=== PATIENT | female | born 1990 | race Hispanic/Latino ===

== ENCOUNTER 2018-04-21 18:43 | Outpatient (CLI) | payer OTHER ==
[2018-04-21 18:59] VITALS: BP 111/56
[2018-04-21] MEDS ORDERED: LACTATED RINGERS 500 ML IV ONE (19:20)
[2018-04-21 20:23] LABS: Bacteria,Urine 2+ /HPF (Negative); Bilirubin,Urine NEG (Negative); Blood,Urine NEG (Negative); Color,Urine Amber (Yellow); Mucus,Urine 1+ /HPF
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
--- NOTE | 2018-04-26 13:45 | History and Physical Report ---
Past History - Obstetrical History : 5 Medications and Allergies Allergies Allergy/AdvReac Type Severity Reaction Status Date / Time No Known Allergies Allergy Unverified 04/21/18 19:14 - Vital Signs Vital signs: Vital Signs Pulse BP 86 111/56 04/21/18 18:58 04/21/18 18:58 Temp Pulse Resp BP Pulse Ox 86 111/56 04/21/18 18:58 04/21/18 18:58 Results All other labs normal.
== END 2018-04-21 20:23 | disposition home or self-care (01) ==
LOC: TRG 18:43
PROVIDERS: ATTEND Obstetrics & Gynecology
DX: O47.03 False labor before 37 completed weeks of gestation, third trimester (principal); Z3A.33 33 weeks gestation of pregnancy
CPT/HCPCS: 59025; 81001

== ENCOUNTER 2018-05-28 11:51 | Inpatient (IN) | payer OTHER ==
[2018-05-28] MEDS ORDERED: BRETHINE SUB-Q PRN ×2 (12:28→13:00)
[2018-05-28] MEDS ORDERED: MINERAL OIL PO PRN ×2 (12:28→13:00)
[2018-05-28] MEDS ORDERED: SUBLIMAZE IV PRN ×2 (12:28→13:00)
[2018-05-28] MEDS ORDERED: XYLOCAINE 2% INFILTRATI ONE (12:28)
--- NOTE | 2018-05-28 12:40 | History and Physical Report ---
History of Present Illness Date of examination: 05/28/18 Chief complaint: labor History of present illness: EDC Confirmation: 06/08/2018 Past History : 5 Term Births: 1 Premature Births: 2 Living Children: 3 Para: 3 Mult. Births: 0 Prev : 0 Aborta: 1 Elect. Ab: 0 Spont. Ab: 1 Ectopics: 0 # 1 Delivery date: 10/2008 Weeks Gestation: 36 labor: yes Delivery type: Anesthesia type: epidural Infant Sex: male weight: 8lbs 12oz # 2 Delivery date: 01/2010 Weeks Gestation: 35 labor: yes Delivery type: Anesthesia type: epidurl Infant Sex: male weight: 5lbs 12oz # 3 Delivery date: 12/2016 Weeks Gestation: 39 labor: no Delivery type: Anesthesia type: epidural Sex: male weight: 7lbs 9oz Comments: on 17P for h/o delivery; Past Medical History: Reviewed history and no changes required: Bipolar Disease Schizophrenia Past Surgical History: Negative Past Surgical History Past Medical History Surgery (Non-editing clerk): Negative Past Surgical History Abnormal PAP: negative THOMPSON Exposure: negative Infertility: negative Uterine Anomaly: negative Uterine Surgery (not C/S): negative Other Gynecologic Problems: negative Infection History Partner hx. of genital herpes: yes Varicella/Chicken Pox Status: Previous Disease Genetic History Congenital Heart Defect: Mom: no Dad: no Gianni Disease: Mom: no Dad: no Thalassemia Mom: no Dad: no Neural Tube Defect Mom: no Dad: no Down's Syndrome Mom: no Dad: no Florian-Sachs Mom: no Dad: no Sickle Cell Disease/Trait Mom: no Dad: no Hemophilia Mom: no Dad: no Muscular Dystrophy Mom: no Dad: no Cystic Fibrosis Mom: no Dad: no [place] Chorea Mom: no Dad: no Mental Retardation Mom: no Dad: no Fragile X Mom: no Dad: no Other Genetic/Chromosomal Disorder Mom: no Dad: no Child w/other defect Mom: no Dad: no Enviromental Exposures Xray Exposure: no Medication, drug, or alcohol use since LMP: yes Chemical/Other Exposure: no Exposure to Cat Liter: no Hx of Parvovirus (Fifth Disease): no Occupational Exposure to Children: none Comments: psych meds Current Allergies (reviewed today): No known allergies Past History Past Medical History: other (See HPI) Past Surgical History: other (see HPI) 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 (see HPI) Family/Genetic History: other (see HPI) Social history: smoking - Obstetrical History Expected Date of Delivery: 06/08/18 Actual Gestation: 38 Week(s) 3 Day(s) : 5 Para: 3 Hx # Term Pregnancies: 1 Number of Pregnancies: 2 Number of Living Children: 3 Medications and Allergies Allergies Allergy/AdvReac Type Severity Reaction Status Date / Time No Known Allergies Allergy Unverified 04/21/18 19:14 Active Meds: Active Medications Ephedrine Sulfate (Ephedrine Sulfate) 10 mg IV Q2M PRN PRN Reason: Hypotension Fentanyl (Sublimaze) 100 mcg IV Q2H PRN PRN Reason: Labor Pain Lactated Ringer's (Lactated Ringers) 1,000 mls @ 125 mls/hr IV DIRECT GAYLE Oxytocin/Sodium Chloride (Pitocin/Ns 20 Unit/1000ml Drip) 20 units in 1,000 mls @ 125 mls/hr IV DIRECT GAYLE Lidocaine (Xylocaine 2%) 20 ml INFILTRATI ONCE ONE Stop: 05/28/18 12:29 Mineral Oil (Mineral Oil) 30 ml PO QHS PRN PRN Reason: Constipation Terbutaline Sulfate (Brethine) 0.25 mg SUB-Q ONCE PRN PRN Reason: Hyperstimulation/Hypertonicity Review of Systems All systems: negative - Vital Signs Vital signs: Vital Signs Pulse BP 74 106/62 05/28/18 12:14 05/28/18 12:14 Temp Pulse Resp BP Pulse Ox 74 106/62 05/28/18 12:14 05/28/18 12:14 - Physical Exam Breasts: Positive: normal Cardiovascular: Regular rate Lungs: Positive: Clear to auscultation, Normal air movement Abdomen: Positive: normal appearance, soft Genitourinary (Female): Positive: normal external genitalia, normal perenium Vulva: both: normal Vagina: Positive: normal moisture Uterus: Positive: normal size Extremities: Positive: normal Deep Tendon Reflex Grade: Normal +2 - Obstetrical FHR: category 1 Uterine Contraction Monitor Mode: External Cervical Dilatation: 8 (per utility worker production) Uterine Contraction Pattern: Regular Uterine Tone Measurement Phase: Contraction Uterine Contraction Intensity: Strong/Firm Results All other labs normal. Assessment and Plan 27y/o @ 38+3 weeks arrived 8cm in labor. GBS NEG. NICU aware of patient's arrival and status - Dr. Nuñez aware of pt's hx and has received copies of echo. Admission orders in EMR. Anticipate . - Patient Problems (1) Rh negative status during Current Visit: Yes Status: Acute Qualifiers: Trimester: third trimester Qualified Code(s): O26.893 - Other specified related conditions, third trimester; Z67.91 - Unspecified blood type, Rh negative Plan to address problem: rhogam work up (2) Smoker Current Visit: Yes Status: Acute (3) IUGR (intrauterine growth restriction) Current Visit: Yes Status: Acute (4) Bipolar 1 disorder Current Visit: Yes Status: Acute (5) Schizophrenia Current Visit: Yes Status: Acute (6) heart defect Current Visit: Yes Status: Acute Plan to address problem: NICU Aware (7) Active labor at term Current Visit: Yes Status: Acute (8) 38 weeks gestation of Current Visit: Yes Status: Acute
[2018-05-28 12:53] LABS: Hematocrit 38.3 % (30.3-42.9); Hemoglobin 13.1 gm/dl (10.1-14.3); Mean Corpuscular HGB Conc 34 % (30-34); Mean Corpuscular Volume 94 fl (79-97); Platelet Count 308 K/mm3 (140-440); Red Blood Count 4.08 M/mm3 (3.65-5.03); Red Cell Distribution Width 12.9 % (13.2-15.2)
[2018-05-28] MEDS ORDERED: STADOL IV PRN (13:00)
[2018-05-28] MEDS ORDERED: PITOCin/NS 20 UNIT/1000ML DRIP 20 UNITS/1,000 ML BAG IV SCH ×3 (13:00→17:24)
[2018-05-28] MEDS ORDERED: LACTATED RINGERS 1,000 ML IV SCH ×2 (13:00)
[2018-05-28] MEDS ORDERED: ZOFRAN IV PRN (13:00)
[2018-05-28] MEDS ORDERED: BRETHINE IVP PRN (13:00)
[2018-05-28] MEDS ORDERED: MARCAINE 0.25% INFILTRATI ONE (13:40)
--- NOTE | 2018-05-28 14:16 | Post Anesthesia Evaluation ---
- Post Anesthesia Evaluation Patient Participated: Yes Airway Patent: Yes Stable Respiratory Function: Yes Nausea/Vomiting: No Temp > 96.8F: Yes Pain Manageable: Yes Adequeate Hydration: Yes Anesthesia Complications: No Block Receding Appropriately: Yes (only gave half loading dose due to status and being 8cm) Patient on Ventilator: No
--- NOTE | 2018-05-28 14:17 | Anesthesia Day of Surgery ---
Anesthesia Day of Surgery - Day of Surgery Patient Examined: Yes Patient H&P Reviewed: Yes Patient is NPO: Yes Beta Blockers: No Cardiac Clearance: No Pulmonary Clearance: No Nabor's Test: N/A
--- NOTE | 2018-05-28 14:18 | Anesthesia Consultation ---
Anesthesia Consult and Med Hx - Airway Anesthetic Teeth Evaluation: Good (few in bad cond) ROM Head & Neck: Adequate Mental/Hyoid Distance: Adequate Mallampati Class: Class I Intubation Access Assessment: Good - Pulmonary Exam CTA: Yes - Cardiac Exam Cardiac Exam: RRR - Pre-Operative Health Status ASA Pre-Surgery Classification: ASA2 Proposed Anesthetic Plan: Epidural - Pulmonary Hx Smoking: Yes (cigs and THC) Hx Asthma: No - Cardiovascular System Hx Hypertension: No - Central Nervous System Hx Seizures: No Hx Psychiatric Problems: Yes (Paranoid Schizophrenic, Bipolar, PTSD, Manic Depression) - Endocrine Hx Renal Disease: No Hx Hypothyroidism: No Hx Hyperthyroidism: No - Hematic Hx Anemia: No Hx Sickle Cell Disease: No - Other Systems Hx Alcohol Use: No
--- NOTE | 2018-05-28 14:22 | Procedure Note ---
OB Delivery Note - Delivery Date of Delivery: 05/28/18 ( female) Test Tech: AMARI MONTANO Estimated blood loss: 200cc - Vaginal Delivery presentation: vertex Delivery position: OA Intrapartum events: none Delivery induction: none Delivery monitor: external FHT, external uterine Route of delivery: Delivery placenta: spontaneous Delivery cord: nuchal cord, 3 umbilical vessels Episiotomy: none Delivery laceration: none Anesthesia: epidural Delivery comments: Dr Nuñez, RN and ETHYLBENZENE OXIDIZER present for delivery. Female del over intact perineum, tight nuchal cord - somersaulted through. 3 vessel cord clamped and cut, take to warmer for assessment by NICU team. Placenta del intact and complete. Pit to IVF. no lacerations. EBL 200. wt 6#12. Apgars 6/8. Infant admitted to NICU for cardiology evaluation. Mother LDR stable. - Infant A at 1 minute: 6 at 5 minutes: 8 Gender: Female (6#12)
[2018-05-28] MEDS ORDERED: TUCKS PAD TP PRN (16:24)
[2018-05-28] MEDS ORDERED: BENADRYL PO PRN (16:24)
[2018-05-28] MEDS ORDERED: SODIUM CHLORIDE FLUSH SYRINGE 10 ML IV SCH (16:24)
[2018-05-28] MEDS ORDERED: DERMOPLAST TP PRN (16:24)
[2018-05-28] MEDS ORDERED: MILK OF MAGNESIA PO PRN (16:24)
[2018-05-28] MEDS ORDERED: LANSINOH TP PRN (16:24)
[2018-05-28] MEDS ORDERED: PHENERGAN PO PRN (16:24)
[2018-05-28] MEDS ORDERED: DULCOLAX PR PRN (16:24)
[2018-05-28] MEDS: IBUPROFEN PO SCH ×2 (17:26→23:49)
[2018-05-28] MEDS ORDERED: HABITROL TD SCH (19:00)
[2018-05-28] MEDS: TYLENOL PO PRN (21:24)
[2018-05-29] MEDS: IBUPROFEN PO SCH (05:04)
[2018-05-29] MEDS ORDERED: BOOSTRIX IM ONE (06:00)
--- NOTE | 2018-05-29 08:32 | Discharge Summary ---
Providers - Providers Date of Admission: 05/28/18 12:44 Date of discharge: 05/29/18 Attending physician: LISBET FARMER 05/28/18 16:24 Consult to Mental Health [CONS] Routine Reason For Exam: Schizophrenia, Bipolar, delivered Place consult to:: Mental health perinatal educator Primary care physician: NORMA STARR Core Measure Documentation - Palliative Care Palliative Care/ Comfort Measures: Not Applicable Exam - Constitutional Vitals: Temp Pulse Resp BP Pulse Ox 97.8 F 58 L 20 98/48 100 05/29/18 00:11 05/29/18 00:11 05/29/18 00:11 05/29/18 00:11 05/29/18 00:11 Plan Follow up with: NORMA STARR MD [Primary Care Provider] - 7 Days
--- NOTE | 2018-05-29 08:47 | Progress Note ---
Assessment and Plan PPD 1 s/p . Patient reports feeling well, no complaints. Fundus is firm, ML, U/2. Vaginal bleeding is scant. Patient denies heavy bleeding or blood clots. Reports pain is controlled with medications. Female infant is currently in NICU, patient planning to visit soon. Patient does not plan to breastfeed, instructed to wear snug bra, breast care reviewed. Post delivery H&H 12.3/36.8. VSSAF. Awaiting psych consult to determine discharge plans. Subjective - Subjective Date of service: 05/29/18 Principal diagnosis: PPD 1 Patient reports: appetite normal, voiding normally, pain well controlled, ambulating normally : in NICU Objective - Vital Signs Latest vital signs: Vital Signs Temp Pulse Resp BP BP BP Pulse Ox 05/29/18 00:11 97.8 F 58 L 20 98/48 100 05/28/18 21:24 18 05/28/18 21:14 98.4 F 76 20 99/55 95 05/28/18 17:26 20 05/28/18 15:50 97.7 F 60 20 99/66 98 05/28/18 15:25 57 L 104/62 05/28/18 15:10 62 104/56 05/28/18 14:56 65 99/57 05/28/18 14:40 81 103/54 05/28/18 14:39 59 L 102/49 05/28/18 14:31 74 104/54 05/28/18 14:29 82 109/67 05/28/18 14:20 71 103/56 05/28/18 14:19 76 99 05/28/18 14:15 72 106/59 05/28/18 14:14 71 99 05/28/18 14:09 78 99 05/28/18 14:06 88 84 05/28/18 14:04 77 99 05/28/18 14:02 71 106/62 05/28/18 14:00 79 121/72 89 05/28/18 13:59 75 102/57 95 05/28/18 13:58 75 110/58 05/28/18 13:57 75 106/57 05/28/18 13:56 76 110/56 05/28/18 13:55 67 112/58 05/28/18 13:54 66 115/67 98 05/28/18 13:53 71 110/56 05/28/18 13:50 62 83 L 05/28/18 13:49 82 97 05/28/18 13:44 85 98 05/28/18 13:39 79 99 05/28/18 13:34 72 96 05/28/18 13:33 97.1 F L 75 18 118/64 118/64 96 05/28/18 12:52 78 126/76 05/28/18 12:14 74 106/62 Intake and Output 05/28/18 05/29/18 05/29/18 23:59 07:59 15:59 Intake Total 400 240 Output Total 700 Balance -300 240 Intake: Oral 400 240 Output: Urine 700 Void 700 Other: Total, Intake Amount 200 240 Total, Output Amount 300 # Voids Void 1 - Exam Breasts: Present: normal Cardiovascular: Present: Regular rate, Normal S1, Normal S2 Lungs: Present: Clear to auscultation Abdomen: Present: normal appearance, soft, normal bowel sounds Vulva: both: normal Uterus: Present: normal, firm Extremities: Present: normal Deep Tendon Reflex Grade: Normal +2 - Labs Labs: Abnormal lab results 05/28/18 Range/Units 12:00 WBC 16.2 H (4.5-11.0) K/mm3 RDW 12.9 L (13.2-15.2) %
[2018-05-29 09:04] LABS: Hematocrit 36.8 % (30.3-42.9); Hemoglobin 12.3 gm/dl (10.1-14.3)
[2018-05-29] MEDS: TYLENOL PO PRN (09:09)
[2018-05-29] MEDS ORDERED: PRENATAL VITAMIN PO SCH (10:00)
--- NOTE | 2018-05-29 12:19 | Event Note ---
Date: 05/29/18 Agree with MW exam and note. 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 Will d/c home when cleared for d/c from a psych standpoint.
--- NOTE | 2018-05-29 16:26 | Discharge Summary ---
Providers - Providers Date of Admission: 05/28/18 12:44 Date of discharge: 05/29/18 (patient desires discharge at this time) Attending physician: LISBET FARMER 05/29/18 10:19 Consult to Case Management [CONS] Routine Services Needed at Discharge: Bioinformatics Associate Notified:: no Was contact made?: No Additional Physician Instructions: consult re: pos. UDS 05/29/18 11:59 Consult to Mental Health [CONS] Routine Reason For Exam: hx of: schizophrenia and bi-polar Place consult to:: mental health Notified:: yes Was contact made?: Yes If yes, spoke with:: jillian Time called:: 12:01 Primary care physician: NORMA STARR Hospitalization Reason for admission: labor Condition: Good Pertinent studies: post delivery h&h 12.3/36.8 Procedures: Hospital course: uncomplicated and course Disposition: - TO HOME OR SELFCARE Core Measure Documentation - Palliative Care Palliative Care/ Comfort Measures: Not Applicable - Core Measures Any of the following diagnoses?: none Exam - Constitutional Vitals: Temp Pulse Resp BP Pulse Ox 97.6 F 68 16 98/61 100 05/29/18 07:56 05/29/18 07:56 05/29/18 09:09 05/29/18 07:56 05/29/18 07:56 General appearance: Present: no acute distress, well-nourished - EENT Eyes: Present: PERRL ENT: hearing intact, clear oral mucosa - Neck Neck: Present: supple, normal ROM - Respiratory Respiratory effort: normal Respiratory: bilateral: CTA - Cardiovascular Heart Sounds: Present: S1 & S2. Absent: rub, click - Extremities Extremities: pulses symmetrical, No edema Peripheral Pulses: within normal limits - Abdominal General gastrointestinal: Present: soft, non-tender, non-distended, normal bowel sounds Female genitourinary: Present: normal - Integumentary Integumentary: Present: clear, warm, dry - Musculoskeletal Musculoskeletal: gait normal, strength equal bilaterally - Psychiatric Psychiatric: appropriate mood/affect, intact judgment & insight - Neurologic Neurologic: CNII-XII intact, moves all extremities - Additional findings Additional findings: fundus firm/ml/u/2. bleeding scant. Patient reports pain is well controlled with ibuprofen. Case management has seen patient and cleared for discharge. Patient reports she has a physician following her for psych who is prescribing her psych medications and she is taking them, Dr. Willem Greenwood. She has a scheduled appt with him on June 26 at 0900. Patient also reports she is seeing a therapist weekly, [facility] in [place], next appt is this Sunday the at 1100. She denies any thoughts of harming herself or others. Reports "I haven't been happier". Patient cleared for discharge per Dr. Phelps. Patient understands to f/u in 4 weeks with [facility]. VSSAF. Plan Activity: no restrictions Diet: regular Follow up with: NORMA STARR MD [Primary Care Provider] - 06/26/18 (Congratulations! Please call [phone] to schedule your appointment in 4 weeks. Call with any questions or concerns. )
[2018-05-29 16:50] VITALS: BP 100/54
[2018-05-29] MEDS ORDERED: HABITROL TD SCH (21:00)
== END 2018-05-29 17:30 | disposition home or self-care (01) | DRG 775 ==
LOC: TRG 11:51 → LD 12:44 → OB 16:06
PROVIDERS: ADMIT Obstetrics & Gynecology; ATTEND Obstetrics & Gynecology
PROC: 10E0XZZ Delivery of Products of Conception, External Approach (ICD-10-PCS; principal; 2018-05-28)
PROC: 3E0R3BZ Introduction of Anesthetic Agent into Spinal Canal, Percutaneous Approach (ICD-10-PCS; 2018-05-28)
PROC: 00HU33Z Insertion of Infusion Device into Spinal Canal, Percutaneous Approach (ICD-10-PCS; 2018-05-28)
PROC: 3E0234Z Introduction of Serum, Toxoid and Vaccine into Muscle, Percutaneous Approach (ICD-10-PCS; 2018-05-29)
PROC: 3E0334Z Introduction of Serum, Toxoid and Vaccine into Peripheral Vein, Percutaneous Approach (ICD-10-PCS; 2018-05-29)
DX: O36.5930 Maternal care for other known or suspected poor fetal growth, third trimester, not applicable or unspecified (principal); O26.893 Other specified pregnancy related conditions, third trimester; Z3A.38 38 weeks gestation of pregnancy; Z37.0 Single live birth; Z23 Encounter for immunization; F31.9 Bipolar disorder, unspecified; Z67.41 Type O blood, Rh negative; F17.210 Nicotine dependence, cigarettes, uncomplicated; F20.0 Paranoid schizophrenia; O69.1XX0 Labor and delivery complicated by cord around neck, with compression, not applicable or unspecified; O99.344 Other mental disorders complicating childbirth; O99.334 Smoking (tobacco) complicating childbirth
CPT/HCPCS: 36415; 85014; 85018; 85027; 85461; 86592; 86850; 86900; 86901; 88305; 88307; 96365; G0378; J2405; J2590; J2790; J3010; J7120

== ENCOUNTER 2019-03-12 12:32 | Outpatient (CLI) | payer OTHER ==
[2019-03-12] MEDS ORDERED: LACTATED RINGERS 1,000 ML IV SCH (14:00)
[2019-03-12 14:24] VITALS: BP 103/55
[2019-03-12 14:44] LABS: Bacteria,Urine 1+ /HPF (Negative); Bilirubin,Urine NEG (Negative); Blood,Urine NEG (Negative); Color,Urine Yellow (Yellow); Mucus,Urine FEW /HPF; Protein,Urine <15 mg/dL mg/dL (Negative)
[2019-03-12 15:02] LABS: Amphetamine Screen,Urine PRESUMPTIVE NEGATIVE; Benzodiazepines Screen,Urine PRESUMPTIVE NEGATIVE; Cannabinoid Screen,Urine PRESUMPTIVE NEGATIVE; Cocaine Screen,Urine PRESUMPTIVE NEGATIVE; Methadone Screen,Urine PRESUMPTIVE NEGATIVE; Opiate Screen,Urine PRESUMPTIVE NEGATIVE
== END 2019-03-12 14:36 | disposition home or self-care (01) ==
LOC: TRG 12:32
PROVIDERS: ATTEND Obstetrics & Gynecology
DX: O47.03 False labor before 37 completed weeks of gestation, third trimester (principal); Z3A.33 33 weeks gestation of pregnancy
CPT/HCPCS: 80307; 81001